=== PATIENT | male | born 1990 | race African-American/Black ===

== ENCOUNTER 2018-08-30 17:14 | Emergency (ER) | payer BC ==
--- NOTE | 2018-08-30 18:46 | ER Document Report ---
ED Medical Screen (RME) - General Chief Complaint: Low Blood Sugar Stated Complaint: BLOOD SUGAR ISSUES Time Seen by Provider: 08/30/18 18:30 Mode of Arrival: Ambulatory Information source: Patient Notes: This is a 28-year-old man who presents to the emergency room after feeling weak, jittery, sweaty. He states that the symptoms occurred at 4 PM. He states that he took his fingerstick at that time and it was in the 50s. He states he last ate at 2 PM ([employer], soda, nuggets and fries). He does have a strong family history on his mother side for diabetes. He states that he is not felt well on and off for the past week to 2 weeks. He states that several times when not feeling bad, he is taken his blood sugar and it has been low. He was able to get the Accu-Cheks from his uncles who are both type I diabetics. He is currently on no medicines. He does take supplements: The [employer] supplement which contains green tea extract, L-arginine, l-carnitine, L-glutamine TRAVEL OUTSIDE OF THE [place] IN LAST 30 DAYS: No - HPI Onset: Last week Onset/Duration: Sudden Quality of pain: No pain Severity: None Pain Level: Denies Associated Symptoms: denies: Chest pain, Shortness of breath Exacerbated by: Denies Relieved by: Denies Similar symptoms previously: No Recently seen / treated by doctor: No - Related Data Smoking: Non-smoker Frequency of alcohol use: None Drug Abuse: None Allergies/Adverse Reactions: No Known Allergies Allergy (Unverified 08/30/18 18:10) Past Medical History - General Information source: Patient - Social History Cigarette use (# per day): No Chew tobacco use (# tins/day): No Frequency of alcohol use: None Drug Abuse: None Lives with: Family Family history: DM - Strong family history of diabetes on the mother side - Medical History Medical History: Negative Renal/ Medical History: Denies: Hx Peritoneal Dialysis Surgical Hx: Negative Review of Systems - Review of Systems Constitutional: denies: Chills, Fever EENT: No symptoms reported Cardiovascular: Dizziness, Lightheaded. denies: Chest pain, Palpitations, Heart racing Gastrointestinal: denies: Abdominal pain, Diarrhea, Vomiting Genitourinary: No symptoms reported Male Genitourinary: No symptoms reported Musculoskeletal: No symptoms reported Skin: No symptoms reported Hematologic/Lymphatic: No symptoms reported Neurological/Psychological: Other - Jittery Physical Exam - Vital signs Vitals: Temp Pulse Resp BP Pulse Ox 98.7 F 87 18 151/87 H 98 08/30/18 17:51 08/30/18 17:51 08/30/18 17:51 08/30/18 17:51 08/30/18 17:51 Notes: Physical exam: GENERAL: Patient is alert and oriented x3, no acute distress HEAD: Atraumatic, normocephalic. EYES: Pupils equal round and reactive to light, extraocular movements intact, sclera anicteric, conjunctiva are normal. ENT: TMs normal, nares patent, oropharynx clear without exudates. Moist mucous membranes. NECK: Normal range of motion, supple without obvious mass or JVD. LUNGS: Breath sounds clear to auscultation bilaterally and equal. No wheezes rales or rhonchi. HEART: Regular rate and rhythm without murmurs, rubs or gallops. ABDOMEN: Soft, normoactive bowel sounds. No tenderness to palpation. No guarding, no rebound. No masses appreciated. EXTREMITIES: Normal range of motion, no pitting or edema. No clubbing or cyanosis. NEUROLOGICAL: Cranial nerves II through XII grossly intact. Normal speech, moving all extremities. PSYCH: Normal mood, normal affect. SKIN: Warm, Dry, normal turgor, no rashes or lesions noted. Course - Vital Signs Vital signs: Temp Pulse Resp BP Pulse Ox 98.7 F 87 18 151/87 H 98 08/30/18 17:51 08/30/18 17:51 08/30/18 17:51 08/30/18 17:51 08/30/18 17:51 - Laboratory Result Diagrams: 08/30/18 18:50 08/30/18 18:50 Laboratory results interpreted by me: 08/30/18 18:50 Total Protein 8.4 H Doctor's Discharge - Discharge Clinical Impression: Hypoglycemic episodes, Elevated blood pressure Condition: Stable Disposition: HOME, SELF-CARE Instructions: Hypoglycemia ([facility]), Hypoglycemia Diet ([facility]) Additional Instructions: As we discussed, your blood work looks good right now. I think you are having episodes of low blood sugar causing you to feel bad. I want you to take a look at the hypoglycemia instruction sheet. But in general, want you to avoid spikes in your sugar (avoid sodas, very sugary items). These food types can cause a rapid rise in your sugar and your body response by making insulin and causes the low blood sugar. There are times when episodes Of hypoglycemia could be the beginnings of diabetes as well. But this is not often the case. Given your family history, I do want you to follow-up with a primary care doctor. In the meantime, I do want you to stop the supplements for now. Some of the supplements can lead to decreased blood sugars (specifically, the green tea extract and L-arginine). They can also lead to some of the abdominal discomfort. So for now, hold off from taking any supplements. Try to eat more often throughout the day: You do not have to eat as much when you do eat. Follow-up with Dr. Harris who is a primary care doctor affiliated with the hospital. Also, your blood pressure was elevated in 1 year in the clinic, they can recheck your blood pressure. Forms: Return to Work Referrals: LIZ HARRIS MD [ACTIVE STAFF] - Follow up as needed
[2018-08-30 19:08] LABS: ABSOLUTE BASOPHILS # (AUTO) 0.1 10^3/uL (0.0-0.2); ABSOLUTE EOSINOPHILS # (AUTO) 0.2 10^3/uL (0.0-0.6); ABSOLUTE LYMPHOCYTES (AUTO) 1.7 10^3/uL (0.5-4.7); ABSOLUTE MONOCYTES (AUTO) 0.6 10^3/uL (0.1-1.4); ABSOLUTE NEUT (AUTO) 5.1 10^3/uL (1.7-8.2); BASOPHILS % (AUTO) 0.9 % (0-2); HEMATOCRIT 46.3 % (37.9-51.0); HEMOGLOBIN 15.8 g/dL (13.5-17.0); LYMPHOCYTES % (AUTO) 21.8 % (13-45); MEAN CORPUSCULAR HEMOGLOBIN 29.2 pg (27.0-33.4); MEAN CORPUSCULAR HGB CONC 34.1 g/dL (32.0-36.0); MEAN CORPUSCULAR VOLUME 86 fl (80-97); MONOCYTES % (AUTO) 7.7 % (3-13); PLATELET COUNT 337 10^3/uL (150-450); RED BLOOD COUNT 5.39 10^6/uL (4.35-5.55); RED CELL DISTRIBUTION WIDTH 13.5 % (11.5-14.0); SEGMENTED NEUTROPHILS % (AUTO) 66.6 % (42-78); TOTAL CELLS COUNTED % (AUTO) 100 %; WHITE BLOOD COUNT 7.7 10^3/uL (4.0-10.5)
[2018-08-30 19:24] LABS: ALANINE AMINOTRANSFERASE 25 U/L (21-72); ALBUMIN 4.9 g/dL (3.5-5.0); ALKALINE PHOSPHATASE 52 U/L (38-126); ANION GAP 12 (5-19); ASPARTATE AMINO TRANSFERASE 29 U/L (17-59); BILIRUBIN,DIRECT 0.3 mg/dL (0.0-0.4); BILIRUBIN,TOTAL 0.4 mg/dL (0.2-1.3); BLOOD UREA NITROGEN 15 mg/dL (7-20); CALCIUM 9.8 mg/dL (8.4-10.2); CARBON DIOXIDE 26 mmol/L (22-30); CHLORIDE 101 mmol/L (98-107); GLUCOSE 90 mg/dL (75-110); POTASSIUM 4.4 mmol/L (3.6-5.0); SODIUM 139.2 mmol/L (137-145); TOTAL PROTEIN 8.4 g/dL (6.3-8.2)
[2018-08-30 19:58] VITALS: BP 162/85
== END 2018-08-30 20:05 | disposition home or self-care (01) ==
LOC: ER 17:14
DX: E16.2 Hypoglycemia, unspecified (principal); I10 Essential (primary) hypertension; R42 Dizziness and giddiness; R61 Generalized hyperhidrosis; R53.1 Weakness; Z83.3 Family history of diabetes mellitus
CPT/HCPCS: 36415; 80053; 82962; 85025; 99284

== ENCOUNTER → 2019-07-04 | Outpatient (CLI) | payer BC ==
--- NOTE | 2019-07-04 15:06 | RADIOLOGY REPORT (SQ) ---
EXAM DESCRIPTION: DUPLEX ART/NILDA FLOW COMPLETE COMPLETED DATE/TIME: 07/04/2019 9:26 am REASON FOR STUDY: HTN (I10) I10 ESSENTIAL (PRIMARY) HYPERTENSION COMPARISON: None. TECHNIQUE: Realtime and static grayscale images acquired. Selected color Doppler, velocities and spe ctral images recorded. LIMITATIONS: None. FINDINGS: RIGHT KIDNEY: RENAL ARTERY VELOCITIES: 114 cm/sec. Segmental artery velocity 59 cm/sec. RENAL VEIN: Color doppler flow present, patent. VELOCITY RATIO: 0.89. Normal waveforms. KIDNEY: Normal size. No significant pathology. LEFT KIDNEY: RENAL ARTERY VELOCITIES: 127 cm/sec. Segmental artery velocity 78 cm/sec. RENAL VEIN: Color doppler flow present, patent. VELOCITY RATIO: 0.98. Normal waveforms. KIDNEY: Normal size. 3.1 cm cyst. No significant pathology. BLADDER: Normal. OTHER: No other significant finding. IMPRESSION: NO DOPPLER EVIDENCE OF HEMODYNAMICALLY SIGNIFICANT RENAL ARTERY STENOSIS. INCIDENTAL LE FT RENAL CYST. COMMENT: NORMAL RENAL ARTERY/AORTA VELOCITY RATIO IS LESS THAN OR EQUAL TO 3.5. TECHNICAL DOCUMENTATION: JOB ID: [id number] [employer]- All Rights Reserved Reading location - IP/workstation name: [email or web address]
== END ==
LOC: RAD 08:02
PROVIDERS: ATTEND Internal Medicine Geriatric Medicine
DX: I10 Essential (primary) hypertension (principal); N28.1 Cyst of kidney, acquired
CPT/HCPCS: 93975